=== PATIENT | male | born 1960 | race Caucasian/White ===

== ENCOUNTER 2019-11-20 07:27 | Day surgery (SDC) | payer OTHER ==
[2019-11-19 11:22] VITALS: BMI 27.1
[2019-11-20] MEDS ORDERED: LIDOCAINE HCL/PF 2% SDV 5ML VIAL ONE (07:49)
[2019-11-20] MEDS ORDERED: PROPOFOL 20 ML ONE ×2 (07:49)
[2019-11-20 08:49] VITALS: TEMP 98.2
[2019-11-20 09:22] VITALS: BP 105/59; PULSE 55
--- NOTE | 2019-11-22 15:59 | PATH ---
Surgical Pathology Report Patient Name: FATEMEH DARLING [facility]. Rec. #: [id number] /Age/Gender: 1960 (Age: 59) / M Account: [id number] [facility] Taken: 11/20/2019 Received: 11/20/2019 Reported: 11/22/2019 Physicians: Alberto Pedro M.D. Specimen(s) Received BX RECTOSIGMOID COLON Clinical History Screening Postoperative diagnosis: Colon polyp Final Diagnosis RECTOSIGMOID, POLYP, BIOPSY: HYPERPLASTIC POLYP. Electronically Signed Ely Coello M.D. Gross Description Received in formalin, labeled "biopsy polyp rectosigmoid" is a parks, irregular portion of soft tissue measuring 0.2 cm. in greatest dimension. The specimen is submitted in toto in one cassette. 11/21/2019 [facility]11/21/2019
== END 2019-11-20 09:25 | disposition home or self-care (01) ==
LOC: FASU-ENDO 07:27
PROVIDERS: ATTEND Internal Medicine Gastroenterology
PROC: 0DBN8ZX Excision of Sigmoid Colon, Via Natural or Artificial Opening Endoscopic, Diagnostic (ICD-10-PCS; principal; 2019-11-20 08:25)
DX: Z12.11 Encounter for screening for malignant neoplasm of colon (principal); D12.7 Benign neoplasm of rectosigmoid junction
CPT/HCPCS: 88305-TC